=== PATIENT | male | born 1930 | race Caucasian/White ===

== ENCOUNTER 2016-07-26 21:07 | Inpatient (IN) | payer MEDICARE, BC ==
[~2016-07-26] VITALS: Ht 185.4 cm; Wt 98.9 kg
[2016-07-26] MEDS ORDERED: OPTIRAY 350 100 ML VIAL HMH IV ONE (21:08)
[2016-07-27] MEDS ORDERED: DUONEB INH ONE (02:08)
[2016-07-27] MEDS ORDERED: SODIUM CHLORIDE 0.9% 500 ML IV ONE (02:28)
[2016-07-27] MEDS ORDERED: ALU/MAG/SIM 30 ML UDC PO PRN (09:15)
[2016-07-27] MEDS ORDERED: MAG HYDROX 30 ML UDC PO PRN (09:15)
[2016-07-27] MEDS ORDERED: BISACODYL 10 MG SUPP RECTAL PRN (09:15)
[2016-07-27] MEDS ORDERED: SALINE FLUSH 10 ML FLUSH PRN (09:15)
[2016-07-27] MEDS ORDERED: BISACODYL EC 5 MG TAB PO PRN (09:15)
[2016-07-27] MEDS ORDERED: ACETAMINOPHEN 325 MG TAB PO PRN (09:15)
[2016-07-27] MEDS ORDERED: [UNRECOGNIZED DRUG - OTHER] XX SCH (09:27)
[2016-07-27] MEDS ORDERED: GLUCAGON 1 MG VIAL IM PRN (09:30)
[2016-07-27 09:32] VITALS: BP_SYST 132; BP_SYST 148; RESP 18; TEMP 97.8
[2016-07-27 09:33] VITALS: BMI 26.9
[2016-07-27] MEDS: ENOXAPARIN 40 MG/0.4 ML SYR SUBQ SCH (10:00)
[2016-07-27] MEDS ORDERED: ACETAMINOPHEN 500 MG TAB PO PRN (11:20)
[2016-07-27] MEDS ORDERED: ASPIRIN 81 MG CHEW TAB PO SCH (11:20)
[2016-07-27] MEDS ORDERED: ENTRESTO 24/26 MG TAB PO SCH (11:23)
[2016-07-27 12:00] VITALS: BP_SYST 114; RESP 18; TEMP 97.9
[2016-07-27] MEDS: DICLOFENAC 75 MG TAB PO SCH (12:43)
[2016-07-27] MEDS: ASPIRIN EC 81 MG TAB PO SCH (12:44)
[2016-07-27] MEDS: METOPROLOL XL 100 MG TAB PO SCH (12:44)
[2016-07-27] MEDS: ISOSORBIDE MONO 60 MG TAB PO SCH (12:44)
[2016-07-27 14:38] VITALS: Ht 185.4 cm; Wt 98.9 kg
[2016-07-27 16:15] VITALS: BP_SYST 116; RESP 16; TEMP 98.3
[2016-07-27] MEDS ORDERED: Furosemide 40 MG TAB PO SCH (17:00)
[2016-07-27] MEDS: Losartan 50 MG TAB PO SCH (17:13)
[2016-07-27] MEDS: Furosemide 40 MG/4 ML VIAL IV SCH (17:14)
[2016-07-27 20:08] VITALS: BP_SYST 98; RESP 18; TEMP 98.1
[2016-07-27] MEDS: PRAVASTATIN 40 MG TAB PO SCH (22:13)
[2016-07-27] MEDS: SALINE FLUSH 10 ML FLUSH SCH (22:14)
[2016-07-27 22:30] VITALS: BP_SYST 138; RESP 20; TEMP 97.7
[2016-07-28] MEDS: LEVEMIR INSULIN SUBQ SCH ×2 (00:03→20:29)
[2016-07-28 03:31] VITALS: BP_SYST 140; RESP 20; TEMP 98
[2016-07-28] MEDS: SODIUM CHLORIDE 0.9% FLUSH BAG 500 ML IV SCH (05:32)
[2016-07-28] MEDS: SALINE FLUSH 10 ML FLUSH SCH ×2 (07:53→20:27)
[2016-07-28] MEDS: ISOSORBIDE MONO 60 MG TAB PO SCH (07:57)
[2016-07-28] MEDS: ASPIRIN EC 81 MG TAB PO SCH (07:57)
[2016-07-28] MEDS: METOPROLOL XL 100 MG TAB PO SCH (07:57)
[2016-07-28] MEDS: Furosemide 40 MG/4 ML VIAL IV SCH ×2 (07:57→17:16)
[2016-07-28] MEDS: Losartan 50 MG TAB PO SCH (07:57)
[2016-07-28] MEDS: DICLOFENAC 75 MG TAB PO SCH (07:57)
[2016-07-28] MEDS: ENOXAPARIN 40 MG/0.4 ML SYR SUBQ SCH (07:58)
[2016-07-28 08:07] VITALS: BP_SYST 112; RESP 20; TEMP 97.7
[2016-07-28 12:30] VITALS: BP_SYST 118; RESP 18; TEMP 97.7
[2016-07-28 15:15] VITALS: BP_SYST 119; RESP 18; TEMP 98.2
[2016-07-28 19:47] VITALS: BP_SYST 112; RESP 20; TEMP 97.9
[2016-07-28] MEDS: PRAVASTATIN 40 MG TAB PO SCH (20:27)
[2016-07-28 23:16] VITALS: BP_SYST 138; RESP 18; TEMP 97.4
[2016-07-29 03:22] VITALS: BP_SYST 120; RESP 20; TEMP 97.3
[2016-07-29] MEDS: SODIUM CHLORIDE 0.9% FLUSH BAG 500 ML IV SCH (05:54)
[2016-07-29 07:58] VITALS: BP_SYST 125; RESP 20; TEMP 97.6
[2016-07-29] MEDS: Furosemide 40 MG/4 ML VIAL IV SCH (09:00)
[2016-07-29] MEDS: ENOXAPARIN 40 MG/0.4 ML SYR SUBQ SCH ×2 (09:00→09:12)
[2016-07-29] MEDS: SALINE FLUSH 10 ML FLUSH SCH ×2 (09:12→20:17)
[2016-07-29] MEDS: ASPIRIN EC 81 MG TAB PO SCH (09:12)
[2016-07-29] MEDS: ISOSORBIDE MONO 60 MG TAB PO SCH (09:12)
[2016-07-29] MEDS: DICLOFENAC 75 MG TAB PO SCH (09:12)
[2016-07-29] MEDS: Losartan 50 MG TAB PO SCH (09:12)
[2016-07-29] MEDS: METOPROLOL XL 100 MG TAB PO SCH (09:13)
[2016-07-29 11:38] VITALS: BP_SYST 120; RESP 20; TEMP 97.6
[2016-07-29] MEDS: ONDANSETRON 4 MG VIAL IV PRN (11:45)
[2016-07-29] MEDS: Furosemide 40 MG TAB PO SCH ×2 (14:19→17:33)
[2016-07-29 15:46] VITALS: BP_SYST 121; RESP 20; TEMP 97.4
[2016-07-29 19:30] VITALS: BP_SYST 108; RESP 20; TEMP 97.8
[2016-07-29] MEDS: PRAVASTATIN 40 MG TAB PO SCH (20:17)
[2016-07-29] MEDS: LEVEMIR INSULIN SUBQ SCH (20:56)
[2016-07-29 23:00] VITALS: BP_SYST 137; RESP 20; TEMP 97.7
[2016-07-30] MEDS: DEXTROSE 50% SYRINGE 50 ML IV PRN ×2 (01:54→03:41)
[2016-07-30 03:00] VITALS: BP_SYST 130; RESP 20; TEMP 97.4
[2016-07-30] MEDS: ONDANSETRON 4 MG VIAL IV PRN (03:41)
[2016-07-30] MEDS: SODIUM CHLORIDE 0.9% FLUSH BAG 500 ML IV SCH (06:00)
[2016-07-30 07:29] VITALS: BP_SYST 140; RESP 16; TEMP 97.5
[2016-07-30] MEDS: Furosemide 40 MG TAB PO SCH ×2 (09:29→17:13)
[2016-07-30] MEDS: SALINE FLUSH 10 ML FLUSH SCH ×2 (09:29→21:35)
[2016-07-30] MEDS: ASPIRIN EC 81 MG TAB PO SCH (09:29)
[2016-07-30] MEDS: Losartan 50 MG TAB PO SCH (09:29)
[2016-07-30] MEDS: DICLOFENAC 75 MG TAB PO SCH (09:29)
[2016-07-30] MEDS: METOPROLOL XL 100 MG TAB PO SCH (09:29)
[2016-07-30] MEDS: ISOSORBIDE MONO 60 MG TAB PO SCH (09:29)
[2016-07-30] MEDS: ENOXAPARIN 40 MG/0.4 ML SYR SUBQ SCH (09:31)
[2016-07-30 11:41] VITALS: BP_SYST 130; RESP 16; TEMP 98
[2016-07-30] MEDS: ONDANSETRON 4 MG TAB PO PRN (14:15)
[2016-07-30 15:59] VITALS: BP_SYST 125; RESP 16; TEMP 98
[2016-07-30 19:00] VITALS: BP_SYST 123; RESP 18; TEMP 98.1
[2016-07-30] MEDS ORDERED: PHARMACY TO DOSE LEVAQUIN IV SCH (21:10)
[2016-07-30] MEDS: PRAVASTATIN 40 MG TAB PO SCH (21:35)
[2016-07-30] MEDS: LEVEMIR INSULIN SUBQ SCH (21:37)
[2016-07-30] MEDS: LEVOFLOXACIN 250 MG/50 ML 50 ML IV SCH (22:07)
[2016-07-30] MEDS: TEMAZEPAM 15 MG CAP PO PRN (22:41)
[2016-07-30 23:00] VITALS: BP_SYST 168; RESP 18; TEMP 97.7
[2016-07-31 04:05] VITALS: BP_SYST 149; RESP 19; TEMP 97.1
[2016-07-31] MEDS: SODIUM CHLORIDE 0.9% FLUSH BAG 500 ML IV SCH (05:11)
[2016-07-31 07:22] VITALS: BP_SYST 136; RESP 18; TEMP 97.7
[2016-07-31] MEDS: ISOSORBIDE MONO 60 MG TAB PO SCH (08:13)
[2016-07-31] MEDS: Losartan 50 MG TAB PO SCH (08:13)
[2016-07-31] MEDS: METOPROLOL XL 100 MG TAB PO SCH (08:13)
[2016-07-31] MEDS: ASPIRIN EC 81 MG TAB PO SCH (08:13)
[2016-07-31] MEDS: Furosemide 40 MG TAB PO SCH (08:13)
[2016-07-31] MEDS: DICLOFENAC 75 MG TAB PO SCH (08:13)
[2016-07-31] MEDS: SALINE FLUSH 10 ML FLUSH SCH ×2 (08:14→20:00)
[2016-07-31] MEDS: LEVOFLOXACIN 250 MG/50 ML 50 ML IV SCH (08:14)
[2016-07-31] MEDS: ENOXAPARIN 40 MG/0.4 ML SYR SUBQ SCH (08:15)
[2016-07-31] MEDS ORDERED: LEVOFLOXACIN 500 MG/100 ML 100 ML IV SCH (09:00)
[2016-07-31 12:04] VITALS: BP_SYST 127; RESP 20; TEMP 98
[2016-07-31 16:37] VITALS: BP_SYST 132; RESP 20; TEMP 97.6
[2016-07-31] MEDS: Furosemide 40 MG/4 ML VIAL IV SCH (17:51)
[2016-07-31 19:45] VITALS: BP_SYST 113; RESP 18
[2016-07-31] MEDS ORDERED: MISSING DOSE XX ONE (20:30)
[2016-07-31] MEDS: PRAVASTATIN 40 MG TAB PO SCH (22:26)
[2016-07-31] MEDS: TEMAZEPAM 15 MG CAP PO PRN (22:27)
[2016-07-31] MEDS: LEVEMIR INSULIN SUBQ SCH (22:32)
[2016-07-31 23:25] VITALS: BP_SYST 135; RESP 18; TEMP 97.3
[2016-08-01] VITALS (7 sets, daily range): BP systolic 110–182; RESP 18–20; TEMP 97.4–97.7
[2016-08-01] MEDS: DEXTROSE 50% SYRINGE 50 ML IV PRN (04:34)
[2016-08-01] MEDS: SODIUM CHLORIDE 0.9% FLUSH BAG 500 ML IV SCH (05:24)
[2016-08-01] MEDS: LEVOFLOXACIN 250 MG/50 ML 50 ML IV SCH (08:22)
[2016-08-01] MEDS: SALINE FLUSH 10 ML FLUSH SCH ×2 (08:22→22:29)
[2016-08-01] MEDS: ENOXAPARIN 40 MG/0.4 ML SYR SUBQ SCH (10:50)
[2016-08-01] MEDS: Losartan 50 MG TAB PO SCH (10:51)
[2016-08-01] MEDS: Furosemide 40 MG/4 ML VIAL IV SCH (10:51)
[2016-08-01] MEDS: DICLOFENAC 75 MG TAB PO SCH (10:52)
[2016-08-01] MEDS: ASPIRIN EC 81 MG TAB PO SCH (10:53)
[2016-08-01] MEDS: ISOSORBIDE MONO 60 MG TAB PO SCH (10:53)
[2016-08-01] MEDS: METOPROLOL XL 100 MG TAB PO SCH (10:54)
[2016-08-01] MEDS ORDERED: GADAVIST 10 ML SYR (HMH) IV ONE (20:44)
[2016-08-01] MEDS: TEMAZEPAM 15 MG CAP PO PRN (22:29)
[2016-08-01] MEDS: PRAVASTATIN 40 MG TAB PO SCH (22:29)
[2016-08-01] MEDS: LEVEMIR INSULIN SUBQ SCH (22:31)
[2016-08-02 05:13] VITALS: BP_SYST 124; RESP 20; TEMP 97.9
[2016-08-02] MEDS: SODIUM CHLORIDE 0.9% FLUSH BAG 500 ML IV SCH (05:58)
[2016-08-02 07:27] VITALS: BP_SYST 145; RESP 20; TEMP 98.1
[2016-08-02] MEDS: SALINE FLUSH 10 ML FLUSH SCH ×2 (08:52→20:02)
[2016-08-02] MEDS: ASPIRIN EC 81 MG TAB PO SCH (08:53)
[2016-08-02] MEDS: Furosemide 40 MG TAB PO SCH (08:54)
[2016-08-02] MEDS: ISOSORBIDE MONO 60 MG TAB PO SCH (08:54)
[2016-08-02] MEDS: METOPROLOL XL 100 MG TAB PO SCH (08:55)
[2016-08-02] MEDS ORDERED: LEVOFLOXACIN 250 MG TAB PO SCH (09:00)
[2016-08-02 10:57] VITALS: BP_SYST 134; RESP 18; TEMP 97.5
[2016-08-02] MEDS ORDERED: PHARMACY TO DOSE VANCOMYCIN IV SCH (13:35)
[2016-08-02] MEDS: VANCOMYCIN 1,250 MG in SODIUM CHLORIDE 0.9% 250 ML IV SCH (15:01)
[2016-08-02 15:40] VITALS: BP_SYST 115; RESP 18; TEMP 97.6
[2016-08-02] MEDS: PRAVASTATIN 40 MG TAB PO SCH (20:01)
[2016-08-02 20:23] VITALS: BP_SYST 135; RESP 20; TEMP 97.8
[2016-08-02 22:19] VITALS: BP_SYST 127; RESP 18; TEMP 97.7
[2016-08-02] MEDS: LEVEMIR INSULIN SUBQ SCH (22:53)
[2016-08-02] MEDS: TEMAZEPAM 15 MG CAP PO PRN (23:01)
[2016-08-03] MEDS: VANCOMYCIN 1,250 MG in SODIUM CHLORIDE 0.9% 250 ML IV SCH ×2 (02:08→14:04)
[2016-08-03 05:53] VITALS: BP_SYST 124; RESP 20; TEMP 98
[2016-08-03] MEDS ORDERED: SODIUM CHLORIDE 0.9% FLUSH BAG 500 ML IV SCH (06:00)
[2016-08-03] MEDS: SODIUM CHLORIDE 0.9% FLUSH BAG 500 ML IV SCH (06:43)
[2016-08-03 07:47] VITALS: BP_SYST 128; RESP 20; TEMP 97.9
[2016-08-03] MEDS: ONDANSETRON 4 MG TAB PO PRN (08:46)
[2016-08-03] MEDS ORDERED: LEVOFLOXACIN 500 MG TAB PO SCH (09:00)
[2016-08-03] MEDS: SALINE FLUSH 10 ML FLUSH SCH (10:06)
[2016-08-03] MEDS: METOPROLOL XL 100 MG TAB PO SCH (10:07)
[2016-08-03] MEDS: Furosemide 40 MG TAB PO SCH (10:08)
[2016-08-03] MEDS: ISOSORBIDE MONO 60 MG TAB PO SCH (10:08)
[2016-08-03] MEDS: ASPIRIN EC 81 MG TAB PO SCH (10:09)
[2016-08-03 11:05] VITALS: BP_SYST 102; RESP 20; TEMP 98.2
[2016-08-03 14:45] VITALS: BP_SYST 102; RESP 20; TEMP 98.2
[2016-08-03 15:53] VITALS: BP_SYST 118; RESP 18; TEMP 98.4
== END 2016-08-03 17:51 | disposition home or self-care (01) | DRG 291 ==
LOC: ENRESERVDT → ENRESERVTM → ER 21:07 → EMR 21:08 → PCU 07-27 07:33 → OBSVTOIN 07-27 16:05 → ENPENDDIS 07-27 16:05 → DELPENDDIS 07-27 16:05 → PCU2 07-27 18:43 → 4NT 07-31 11:09
PROVIDERS: ADMIT Internal Medicine; ATTEND Internal Medicine
PROC: 02HV33Z Insertion of Infusion Device into Superior Vena Cava, Percutaneous Approach (ICD-10-PCS; principal; 2016-08-02)
DX: I13.0 Hypertensive heart and chronic kidney disease with heart failure and stage 1 through stage 4 chronic kidney disease, or unspecified chronic kidney disease (principal); J18.9 Pneumonia, unspecified organism; J90 Pleural effusion, not elsewhere classified; J44.1 Chronic obstructive pulmonary disease with (acute) exacerbation; N39.0 Urinary tract infection, site not specified; E11.9 Type 2 diabetes mellitus without complications; N18.3 Chronic kidney disease, stage 3 (moderate); M86.9 Osteomyelitis, unspecified; D64.9 Anemia, unspecified; I50.43 Acute on chronic combined systolic (congestive) and diastolic (congestive) heart failure; I25.5 Ischemic cardiomyopathy; I25.10 Atherosclerotic heart disease of native coronary artery without angina pectoris; M54.5 Low back pain; G47.00 Insomnia, unspecified; Z79.4 Long term (current) use of insulin; Z79.82 Long term (current) use of aspirin; Z95.0 Presence of cardiac pacemaker; Z87.891 Personal history of nicotine dependence; Z83.3 Family history of diabetes mellitus; Z82.49 Family history of ischemic heart disease and other diseases of the circulatory system
CPT/HCPCS: 36415; 36569; 71010; 71250; 71260; 73720; 76937; 80048; 80053; 81001; 82553; 82945; 82947; 83036; 83615; 83735; 83880; 84155; 84443; 84484; 85025; 85379; 85610; 85730; 86141; 87077; 87088; 87186; 87205; 87493; 88108; 89051; 93005; 93923; 93970; 94640; 96360; 99222; 99223; 99232; 99238; 99239